=== PATIENT | female | born 1980 | race Caucasian/White ===

== ENCOUNTER 2018-12-23 20:45 | Emergency (ER) | payer MEDICAID ==
[~2018-12-23] VITALS: Wt 65.8 kg
[~2018-12-23 20:45] MED LIST: DOCU-144 PO; HYDR-3498 PO; ZOF8 PO
[2018-12-24] MEDS ORDERED: SOD CHLORIDE 0.9% 1,000 ML IV STA (02:08)
[2018-12-24] MEDS: ONDANSETRON 4 MG INJ IV STA ×2 (02:22→02:32)
[2018-12-24] MEDS: morphine 4 MG/ML VIAL IV STA ×2 (02:22→02:32)
[2018-12-24] MEDS ORDERED: IOHEXOL 300MG/ML 150 ML BTL ONE (03:02)
[2018-12-24] MEDS ORDERED: SOD CHLORIDE 0.9% 100 ML ONE (03:02)
[2018-12-24] MEDS ORDERED: ACET500C5 PO (05:29)
[2018-12-24] MEDS ORDERED: ONDA4TAB14 PO (05:34)
[2018-12-24] MEDS ORDERED: HYDR-4011 PO (05:34)
[2018-12-24 05:35] VITALS: BP 93/59; PULSE 65; RESP 18
--- NOTE | 2018-12-30 17:23 | ERD ---
ER Documentation Chief Complaint Chief Complaint AP, VOMITING X'S 3 DAYS HPI 38-year-old female patient with no a past medical history of hernia presents the ED complaining of abdominal pain, vomiting that started 3 days ago. Patient reports that she has had a hernia for the last 8 months however it has been more painful. Patient reports that she has had a previous cholecystectomy. States that she has had 2 previous hernia repairs. Denies any fever, chills, nausea, vomiting, diarrhea, neck stiffness. ROS All systems reviewed and are negative except as per history of present illness. Medications Home Meds Active Scripts Ondansetron (Ondansetron Odt) 4 Mg Tab.rapdis, 4 MG PO Q6H PRN for NAUSEA AND/OR VOMITING, #10 TAB Prov:ELYSSA HENDERSON PA-C 12/24/18 Hydrocodone/Acetaminophen ([place] 5-325 Tablet) 1 Each Tablet, 1 TAB PO Q6H PRN for PAIN, #7 TAB Prov:ELYSSA HENDERSON PA-C 12/24/18 Ondansetron Hcl* (Zofran* ODT) 8 mg -ODT Tab.disper, 8 MG PO Q6H PRN for NAUSEA AND OR VOMITING for 10 Days, TAB Prov:FORTINO WHITT DO 08/19/15 Docusate Sodium* (Colace*) 100 Mg Capsule, 100 MG PO BID, #30 CAP Prov:FORTINO WHITT DO 08/19/15 Hydrocodone Bit-Acetaminophen* (Dover*) 5-325 Mg Tab, 1 TAB PO Q4H PRN for PAIN, #30 TAB Prov:FORTINO WHITT DO 08/19/15 Allergies Allergies: Coded Allergies: No Known Allergy (Unverified , 08/19/15) PMhx/Soc History of Surgery: Yes () Anesthesia Reaction: No Hx Neurological Disorder: No Hx Respiratory Disorders: No Hx Cardiac Disorders: No Hx Psychiatric Problems: No Hx Miscellaneous Medical Probl: No Hx Alcohol Use: No Hx Substance Use: No Hx Tobacco Use: No FmHx Family History: No diabetes, No coronary disease Physical Exam Vitals Temp 98 Pulse 70 Systolic blood pressure 119 Diastolic blood pressure 58 Respiratory 18 O2 sat 98% Physical Exam Const: [id number], well-nourished. In no acute distress. Head: Atraumatic, normocephalic Eyes: Normal Conjunctiva without injection. No purulent discharge. ENT: Normal external ear, nose. Moist oropharynx without tonsillar exudates. Non-erythematous pharynx. Uvula midline. No drooling. No trismus. Neck: No cervical midline tenderness. Full range of motion. No meningismus. No cervical lymphadenopathy. No JVD. Resp: Clear to auscultation bilaterally. No wheezing, rhonchi, rales, or crackles. No accessory muscle use. No retractions. Cardio: Regular rate and rhythm. No murmurs, rubs or gallops. Abd: Soft, palpable painful large reproducible hernia noted at the mid abdominal area, non distended. Normal bowel sounds. No palpable masses. No rebound tenderness. No guarding. Negative McBurney's point. Negative psoas sign. Negative obturator sign. Skin: No petechiae or rashes Back: No midline tenderness. No CVA tenderness. Ext: No cyanosis, or edema. Neur: Awake and alert. Normal gait. Normal coordination. Psych: Normal Mood and Affect Results 24 hrs Laboratory Tests Test 12/24/18 02:16 12/24/18 02:24 White Blood Count 10.3 10^3/ul Red Blood Count 4.84 10^6/ul Hemoglobin 14.5 g/dl Hematocrit 44.1 % Mean Corpuscular Volume 91.1 fl Mean Corpuscular Hemoglobin 30.0 pg Mean Corpuscular Hemoglobin Concent 32.9 g/dl Red Cell Distribution Width 12.4 % Platelet Count 360 10^3/UL Mean Platelet Volume 9.8 fl Immature Granulocytes % 0.300 % Neutrophils % 31.8 % Lymphocytes % 56.3 % Monocytes % 8.6 % Eosinophils % 2.5 % Basophils % 0.5 % Nucleated Red Blood Cells % 0.0 /100WBC Immature Granulocytes # 0.030 10^3/ul Neutrophils # 3.3 10^3/ul Lymphocytes # 5.8 10^3/ul Monocytes # 0.9 10^3/ul Eosinophils # 0.3 10^3/ul Basophils # 0.1 10^3/ul Nucleated Red Blood Cells # 0.0 10^3/ul Urine Color STRAW Urine Clarity CLEAR Urine pH 7.0 Urine Specific [place] 1.004 Urine Ketones NEGATIVE mg/dL Urine Nitrite NEGATIVE mg/dL Urine Bilirubin NEGATIVE mg/dL Urine Urobilinogen NEGATIVE mg/dL Urine Leukocyte Esterase NEGATIVE Erica/ul Urine Microscopic RBC 4 /HPF Urine Microscopic WBC 0 /HPF Urine Squamous Epithelial Cells FEW /HPF Urine Hemoglobin 2+ mg/dL Urine Glucose NEGATIVE mg/dL Urine Total Protein NEGATIVE mg/dl Sodium Level 142 mmol/L Potassium Level 3.7 mmol/L Chloride Level 101 mmol/L Carbon Dioxide Level 28 mmol/L Anion Gap 13 Blood Urea Nitrogen 13 mg/dl Creatinine 0.68 mg/dl Est Glomerular Filtrat Rate mL/min > 60 mL/min Glucose Level 95 mg/dl Calcium Level 9.6 mg/dl Total Bilirubin 0.1 mg/dl Direct Bilirubin 0.00 mg/dl Indirect Bilirubin 0.1 mg/dl Aspartate Amino Transf (AST/SGOT) 26 IU/L Alanine Aminotransferase (ALT/SGPT) 31 IU/L Alkaline Phosphatase 83 IU/L Total Protein 8.6 g/dl Albumin 4.7 g/dl Globulin 3.90 g/dl Albumin/Globulin Ratio 1.20 Lipase 92 U/L POC Beta HCG, Qualitative NEGATIVE Current Medications Medications Dose Sig/Latrice Start Time Status Last (Trade) Ordered Route PRN Stop Time Admin Dose Reason Admin Sodium 1,000 ml @ Q1H STAT 12/24/18 DC 12/24/18 Chloride 1,000 mls/hr IV 02:08 12/24/18 02:23 03:07 Morphine 4 mg ONCE STAT 12/24/18 DC Sulfate IV 02:08 12/24/18 (morphine) 02:10 Ondansetron 4 mg ONCE STAT 12/24/18 DC HCl (Zofran IV 02:08 12/24/18 Inj) 02:10 Sodium 100 ml @ ud STK-MED 12/24/18 DC 12/24/18 Chloride ONCE .ROUTE 03:02 12/24/18 03:22 03:03 Iohexol 150 ml STK-MED 12/24/18 DC 12/24/18 (Omnipaque ONCE .ROUTE 03:02 12/24/18 03:22 300mg/ ml) 03:03 Procedures/MDM 38-year-old female patient with no significant past medical history presents to ED complaining of a abdominal pain 3 days ago associated with vomiting. Patient is afebrile and nontoxic-appearing. Patient was further worked up with CBC, CMP, lipase, UA, CT of the abdomen and pelvis with contrast. Patient's pain and symptoms have improved after treatment with 1 L normal saline, 4 mg IV zofran, 4 mg IV morphine. CBC: No leukocytosis. No e/o of systemic infection. No e/o anemia. CMP: No e/o severe acidosis, alkalosis, renal failure, diabetic ketoacidosis, liver disease Lipase within normal limits. Urine: No leukocyte esterase, no nitrites, no hematuria. Urine : CT of the abdomen and pelvis with contrast.Negative IMPRESSION: 1. There is supraumbilical rectus diastases and marked thinning with focal h erniation of fat along the left lateral aspect. Minimal fat stranding. 2. Large colonic stool burden. No evidence for small bowel obstruction, free air, or abscess. Patient has herniation along the superior umbilical region however no stimulation or incarceration noted. Low suspicion for ectopic , ovarian torsion, gastritis, GERD, peptic ulcer disease, cholecystitis, choledocholithiasis, cholangitis, pancreatitis, appendicitis, bowel obstruction, ileus, volvulus, nephrolithiasis, pyelonephritis, hepatitis, perforated viscus, diverticulitis, strangulated/incarcerated hernia, DKA, acute abdomen, mesenteric ischemia or other emergent conditions. Discussed with my supervising physician, Dr. Sawant who agreed with the management discharge plan. Discharge medications: Ton Seymourco Follow up with primary care physician in 1-2 days for referral to general surgeon. Instructed patient to return to the ED sooner for any worsening symptoms. Patient's questions were answered. Patient understood and agreed with discharge plan. Patient discharged stable. Departure Diagnosis: Primary Impression: Abdominal pain Abdominal location: unspecified location Qualified Codes: R10.9 - Unspecified abdominal pain Condition: Stable Patient Instructions: Abdominal Pain, How a Hernia Develops, Hernia (Inguinal, Ventral, Umbilical) [facility]errals[facility] Usted se gupta hecho un examen mdico de control que le indica que no est en connie condicin que requiera tratamiento urgente en el Departamento de Emergencia. Un estudio ms profundo y el tratamiento de bernal condicin pueden esperar sin ningn riesgo hasta que usted sea atendida/o en el consultorio de bernal mdico o connie clnica. Es responsabilidad suya arreglar connie sanket para el seguimiento del sydnie. MANEJO DE CONDICIONES NO URGENTES EN EL FUTURO 1) Si usted tiene un mdico de atencin primaria: Usted debera llamar a bernal mdico de atencin primaria antes de venir al departamento de emergencia. Despus de las horas de consultorio, bernal doctor o bernal asociado/a est disponible por telfono. El mdico o enfermero de tanvi en el servicio telefnico puede asesorarle por valentín medio para atender el problema, o sydnie contrario se puede programar connie sanket. 2) Si usted no tiene un mdico de atencin primaria: Llame al mdico o clnica de referencia que aparece abajo nkechi las horas de consultorio para hacer connie sanket para que le vean. CLINICAS: [place] [id number] [phone] [facility] [phone] [facility] [facility] [phone] [address] [place] [id number] [phone] [facility]. [facility] [phone] [address] [facility]. [phone] [address] [facility] () Usadam se gupta hecho un examen mdico de control que le indica que no est en connie condicin que requiera tratamiento urgente en el Departamento de Emergencia. Un estudio ms profundo y el tratamiento de bernal condicin pueden esperar sin ningn riesgo hasta que usted sea atendida/o en el consultorio de bernal mdico o connie clnica. Es responsabilidad suya arreglar connie sanket para el seguimiento del sydnie. MANEJO DE CONDICIONES NO URGENTES EN EL FUTURO 1) Si usted tiene un mdico de atencin primaria: Usted debera llamar a bernal mdico de atencin primaria antes de venir al departamento de emergencia. Despus de las horas de consultorio, bernal doctor o bernal asociado/a est disponible por telfono. El mdico o enfermero de tanvi en el servicio telefnico puede asesorarle por valentín medio para atender el problema, o sydnie contrario se puede programar connie sanket. 2) Si usted no tiene un mdico de atencin primaria: Llame al mdico o condado institucions de referencia que aparece abajo nkechi las horas de consultorio para hacer connie sanket para que le vean. SI USTED NO PUEDE PAGAR PARA LUCAS UN MEDICO puede ir a: [facility] [address] [place] [address] [facility] [address] [place] [address] [facility] [address] [place] [address] [facility] [address] [place], [place] [id number] Additional Instructions: Llame al doctor MAANA y rita connie SANKET PARA DENTRO DE 2-3 HUMPHREY.Dgale a la secretaria que nosotros le instruimos hacer esta sanket.Avise o llame si bernal condicin se empeora antes de la sanket. Regresa aqui si peor o no mejor. ELYSSA HENDERSON PA-C Dec 30, 2018 17:17
== END 2018-12-24 05:51 | disposition home or self-care (01) ==
LOC: FTE 20:45
DX: R10.9 Unspecified abdominal pain (principal)
CPT/HCPCS: 36415; 74177; 80053; 81001; 81025; 83690; 85025; 96360; 96361; J2270; J2405; J7030; Q9967; Z7502; Z7610

== ENCOUNTER 2019-02-24 08:22 | Emergency (ER) | payer MEDICAID ==
[~2019-02-24] VITALS: Ht 152.4 cm; Wt 61.2 kg
[~2019-02-24 08:22] MED LIST changes: +HYDR-4011 PO; +ONDA4TAB14 PO
[2019-02-24 08:26] VITALS: BP 125/61; PULSE 70; RESP 16; Ht 152.4 cm; Wt 61.2 kg
[2019-02-24] MEDS ORDERED: ONDANSETRON 4 MG INJ IV STA (08:53)
[2019-02-24] MEDS ORDERED: SOD CHLORIDE 0.9% 1,000 ML IV STA (08:53)
[2019-02-24] MEDS ORDERED: KETOROLAC 30 MG INJ IV STA (08:53)
[2019-02-24] MEDS ORDERED: IOHEXOL 300MG/ML 150 ML BTL ONE (09:28)
[2019-02-24] MEDS ORDERED: SOD CHLORIDE 0.9% 100 ML ONE (09:28)
[2019-02-24] MEDS ORDERED: FAMO-96 PO (10:16)
[2019-02-24] MEDS ORDERED: FLUC150T PO (10:16)
[2019-02-24] MEDS ORDERED: HYDR-4011 PO (10:16)
--- NOTE | 2019-02-24 11:41 | ERD ---
ER Documentation Chief Complaint Chief Complaint PT c/o AP radaiting to back X 4 days, umbilical hernia sx 7 weeks ago. HPI 38-year-old female presenting with abdominal pain x4 days. Patient had hernia surgery in [facility] 7 weeks ago. She had her last bowel movement today. She had some generalized abdominal pain. She has some mild burning with urination. No fevers. No back pain. She states that she had some vaginal discharge and itching. Patient was recently denies medical problems. NKDA. Surgical history is hernia x2, cholecystectomy. Social history denies ROS All systems reviewed and are negative except as per history of present illness. Medications Home Meds Active Scripts Fluconazole* (Diflucan*) 150 Mg Tablet, 150 MG PO ONCE, #1 TAB Prov:STEVEN YBARRA PA-C 02/24/19 Famotidine* (Pepcid*) 20 Mg Tablet, 20 MG PO BID for 4 Days, TAB Prov:STEVEN YBARRA PA-C 02/24/19 Hydrocodone/Acetaminophen (Russell 5-325 Tablet) 1 Each Tablet, 1 TAB PO Q6H PRN for PAIN, #7 TAB Prov:STEVEN YBARRA PA-C 02/24/19 Ondansetron (Ondansetron Odt) 4 Mg Tab.rapdis, 4 MG PO Q6H PRN for NAUSEA AND/OR VOMITING, #10 TAB Prov:ELYSSA HENDERSON PA-C 12/24/18 Hydrocodone/Acetaminophen (Russell 5-325 Tablet) 1 Each Tablet, 1 TAB PO Q6H PRN for PAIN, #7 TAB Prov:ELYSSA HENDERSON PA-C 12/24/18 Ondansetron Hcl* (Zofran* ODT) 8 mg -ODT Tab.disper, 8 MG PO Q6H PRN for NAUSEA AND OR VOMITING for 10 Days, TAB Prov:FORTINO WHITT DO 08/19/15 Docusate Sodium* (Colace*) 100 Mg Capsule, 100 MG PO BID, #30 CAP Prov:FORTINO WHITT DO 08/19/15 Hydrocodone Bit-Acetaminophen* (Russell*) 5-325 Mg Tab, 1 TAB PO Q4H PRN for PAIN, #30 TAB Prov:FORTINO WHITT DO 08/19/15 Allergies Allergies: Coded Allergies: No Known Allergy (Unverified , 08/19/15) PMhx/Soc History of Surgery: Yes (, gallbladder, hernia repair x2) Anesthesia Reaction: No Hx Neurological Disorder: No Hx Respiratory Disorders: No Hx Cardiac Disorders: No Hx Psychiatric Problems: No Hx Miscellaneous Medical Probl: No Hx Alcohol Use: No Hx Substance Use: No Hx Tobacco Use: No Smoking Status: Never smoker FmHx Family History: No diabetes, No coronary disease, No other Physical Exam Vitals Vital Signs Date Temp Pulse Resp B/P (MAP) Pulse Ox O2 O2 Flow FiO2 Time Delivery Rate 02/24/19 98.8 70 16 125/61 99 08:26 (82) Physical Exam GENERAL: The patient is well-appearing, well-nourished, in no acute distress CHEST: Clear to auscultation bilaterally. There are no rales, wheezes or rhonchi. HEART: Regular rate and rhythm. No murmurs, clicks, rubs or gallops. ABDOMEN:Soft, nontender and nondistended. Good bowel sounds. No rebound or guarding. No gross peritonitis. No gross organomegaly or masses. SKIN: Surgical scars seen to mid abdomen with no surrounding erythema or purulence. No dehiscence. Result Diagram: 02/24/1985502/24/19855 Results 24 hrs Laboratory Tests Test 02/24/19 08:52 02/24/19 08:56 POC Beta HCG, Qualitative NEGATIVE White Blood Count 12.6 10^3/ul Red Blood Count 4.64 10^6/ul Hemoglobin 14.1 g/dl Hematocrit 42.6 % Mean Corpuscular Volume 91.8 fl Mean Corpuscular Hemoglobin 30.4 pg Mean Corpuscular Hemoglobin Concent 33.1 g/dl Red Cell Distribution Width 12.5 % Platelet Count 417 10^3/UL Mean Platelet Volume 9.9 fl Immature Granulocytes % 0.300 % Neutrophils % 51.6 % Lymphocytes % 38.1 % Monocytes % 6.8 % Eosinophils % 2.6 % Basophils % 0.6 % Nucleated Red Blood Cells % 0.0 /100WBC Immature Granulocytes # 0.040 10^3/ul Neutrophils # 6.5 10^3/ul Lymphocytes # 4.8 10^3/ul Monocytes # 0.9 10^3/ul Eosinophils # 0.3 10^3/ul Basophils # 0.1 10^3/ul Nucleated Red Blood Cells # 0.0 10^3/ul Urine Color YELLOW Urine Clarity CLEAR Urine pH 8.0 Urine Specific [place] 1.011 Urine Ketones NEGATIVE mg/dL Urine Nitrite NEGATIVE mg/dL Urine Bilirubin NEGATIVE mg/dL Urine Urobilinogen NEGATIVE mg/dL Urine Leukocyte Esterase NEGATIVE Erica/ul Urine Microscopic RBC 5 /HPF Urine Microscopic WBC 0 /HPF Urine Squamous Epithelial Cells FEW /HPF Urine Bacteria FEW /HPF Urine Hemoglobin 2+ mg/dL Urine Glucose NEGATIVE mg/dL Urine Total Protein NEGATIVE mg/dl Sodium Level 143 mmol/L Potassium Level 3.8 mmol/L Chloride Level 103 mmol/L Carbon Dioxide Level 30 mmol/L Anion Gap 10 Blood Urea Nitrogen 8 mg/dl Creatinine 0.65 mg/dl Est Glomerular Filtrat Rate mL/min > 60 mL/min Glucose Level 96 mg/dl Calcium Level 9.7 mg/dl Total Bilirubin 0.5 mg/dl Direct Bilirubin 0.00 mg/dl Indirect Bilirubin 0.5 mg/dl Aspartate Amino Transf (AST/SGOT) 21 IU/L Alanine Aminotransferase (ALT/SGPT) 18 IU/L Alkaline Phosphatase 81 IU/L Total Protein 8.2 g/dl Albumin 4.5 g/dl Globulin 3.70 g/dl Albumin/Globulin Ratio 1.21 Lipase 72 U/L Current Medications Medications Dose Sig/Latrice Start Time Status Last (Trade) Ordered Route PRN Stop Time Admin Dose Reason Admin Sodium 1,000 ml @ Q1H STAT 02/24/19 DC 02/24/19 Chloride 1,000 mls/hr IV 08:53 02/24/19 09:12 09:52 Ondansetron 4 mg ONCE STAT 02/24/19 DC 02/24/19 HCl (Zofran IV 08:53 02/24/19 09:12 Inj) 08:54 Ketorolac 30 mg ONCE STAT 02/24/19 DC 02/24/19 Tromethamine IV 08:53 02/24/19 09:12 (Toradol) 08:54 IV Flush 10 ml STK-MED 02/24/19 DC (NS 10 ml) ONCE .ROUTE 09:28 02/24/19 09:29 Sodium 100 ml @ ud STK-MED 02/24/19 DC Chloride ONCE .ROUTE 09:28 02/24/19 09:29 Iohexol 150 ml STK-MED 02/24/19 DC (Omnipaque ONCE .ROUTE 09:28 02/24/19 300mg/ ml) 09:29 Procedures/MDM DIAGNOSTIC IMAGING REPORT Patient: MELODY MCCAIN : 1980 Age: 38 Sex: F MR #: [id number] DOS: 02/24/19 0853 Ordering MD: YESENIA YBARRA PA-C Location: [facility] Room/Bed: PROCEDURE: CT abdomen and pelvis with contrast CLINICAL INDICATION: Abdominal pain, status post hernia repair 7 weeks ago. TECHNIQUE: Transaxial computed tomographic images of the abdomen and pelvis were obtained following the uneventful administration of 100 mL Omnipaque-300 intravenous contrast according to standard protocol. Coronal and sagittal reformatted images were provided. DICOM images are available. Radiation dose: CTDIvol (mGy) = 9.27; total DLP (mGy.cm) = 502.95. One or more of the following dose reduction techniques were used: - Automated exposure control. - Adjustment of the mA and/or kV according to patient size. - Use of iterative reconstruction technique. COMPARISON: CT abdomen and pelvis dated 12/24/2018. FINDINGS: The visualized lung bases are clear. There is a small calcified granuloma in the left lower lobe. There is no pleural effusion. Spleen is small. Gallbladder is surgically absent. Liver, pancreas, adrenal glands, and kidneys are normal. There is no evidence of intestinal obstruction. The appendix is normal. There is no abdominal aortic aneurysm. There is no free intraperitoneal air. Th ere is trace free pelvic fluid. Urinary bladder is normal. There is fluid in the endometrial canal. There is no suspicious mesenteric or retroperitoneal lymphadenopathy. There are interval postsurgical changes of supraumbilical ventral hernia repair. The osseous structures of the abdomen and pelvis are intact. There are mild discogenic degenerative changes at L5-S1. IMPRESSION: 1. Fluid in the endometrial canal, recommend correlation with phase of menstruation and pelvic sonogram as clinically warranted.. 2. Interval postsurgical changes of supraumbilical ventral hernia repair. 3. Trace free pelvic fluid, could be physiologic. MDM: 38-year-old female presenting with abdominal pain. I have low suspicion for urinary tract infection. I have low suspicion for acute abdominal roseann rgency. I have low suspicion for pelvic emergency. Patient does not have abscess formation noted after surgery and patient's exam is non-concerning. Blood work and urine is within normal limits. Patient is having normal bowel movements. Patient is discharged with strict ER precautions and told to follow- up with primary care. She is told symptoms change or worsen to return immediately to the ER. All questions answered at discharge Departure Diagnosis: Primary Impression: Abdominal pain Condition: Stable Patient Instructions: Abdominal Pain, Unknown Cause, (Female) Referrals: [facility] YOU HAVE RECEIVED A MEDICAL SCREENING EXAM AND THE RESULTS INDICATE THAT YOU DO NOT HAVE A CONDITION THAT REQUIRES URGENT TREATMENT IN THE EMERGENCY DEPARTMENT. FURTHER EVALUATION AND TREATMENT OF YOUR CONDITION CAN WAIT UNTIL YOU ARE SEEN IN YOUR DOCTORS OFFICE WITHIN THE NEXT 1-2 DAYS. IT IS YOUR RESPONSIBILITY TO MAKE AN APPOINTMENT FOR FOLOW-UP CARE. IF YOU HAVE A PRIMARY DOCTOR --you should call your primary doctor and schedule an appointment IF YOU DO NOT HAVE A PRIMARY DOCTOR YOU CAN CALL OUR PHYSICIAN REFERRAL HOTLINE AT IF YOU CAN NOT AFFORD TO SEE A PHYSICIAN YOU CAN CHOSE FROM THE FOLLOWING [facility] CLINICS [facility] [address] [facility] [address] [facility] [address] [facility] [facility] [address] [facility] [address] [place] [facility]. [facility]. [address] Additional Instructions: FOLLOW UP WITH YOUR PRIMARY CARE PHYSICIAN TOMORROW.Return to this facility if you are not improving as expected. STEVEN YBARRA PA-C February 24, 2019 11:41
== END 2019-02-24 10:51 | disposition home or self-care (01) ==
LOC: FTE 08:22
DX: R10.84 Generalized abdominal pain (principal)
CPT/HCPCS: 36415; 74177; 80053; 81001; 81025; 83690; 85025; 96361; 96374; 96375; J1885; J2405; J7030; Q9967; Z7502; Z7610